=== PATIENT | female | born 1990 | race Caucasian/White ===

== ENCOUNTER 2023-05-21 12:23 | Outpatient (CLI) | payer OTHER, SELFPAY ==
--- NOTE | 2023-05-21 12:15 | CRLHL7_ITS ---
For Patients: As a result of the Cures Act, medical imaging exams and procedure reports are released immediately into your electronic medical record. You may view this report before your referring provider. If you have questions, please contact your health care provider. INDICATION: Dating and viability. LMP 03/07/2023. COMPARISON: None. TECHNIQUE: Real-time dinh-scale imaging of the pelvis was performed. FINDINGS: Sonographic imaging demonstrates a single living intrauterine gestation. The embryo has a regular cardiac rate measuring 163 beats per minute. The embryo`s crown-rump length measurement of 5.0 cm corresponds to a gestational age of 11 weeks 5 days with a sonographic due date of 12/05/2023. There is a normal-appearing yolk sac. The placenta has not yet developed. There is a 1.1 x 1.0 x 2.2 cm subchorionic hemorrhage in the right uterus. The right ovary measures 4.0 x 1.4 x 2.1 cm and the left ovary measures 4.7 x 3.5 x 3.5 cm. Corpus luteal cyst in the left ovary. No free fluid in the cul-de-sac. IMPRESSION: 1. Single living intrauterine gestation with crown rump length 5.0 cm which corresponds to a gestational age of 11 weeks 5 days with a sonographic due date of 12/05/2023. 2. The clinical gestational age by LMP is 10 weeks 5 days. 3. Small subchorionic hemorrhage. Dictated by Renea Sotomayor MD @ 05/21/2023 10:46:29 PM (Electronically Signed)
== END 2023-05-21 12:24 | disposition home or self-care (01) ==
LOC: US 12:24
PROVIDERS: Visit Provider Registered Nurse
DX: Z34.91 Encounter for supervision of normal pregnancy, unspecified, first trimester (principal); O09.521 Supervision of elderly multigravida, first trimester; Z3A.10 10 weeks gestation of pregnancy
CPT/HCPCS: 76801; 86703; 86706; 86803; 86850; 86900; 86901; 87086; 87340; 87491; 87591; T1013

== ENCOUNTER 2023-05-21 14:06 | Outpatient (CLI) | payer OTHER, SELFPAY ==
[2023-05-21 18:27] LABS: Chlamydia DNA Amplified* NOT DETECTED (No Detected); GC DNA Amplified* NOT DETECTED (No Detected)
== END 2023-05-21 14:07 | disposition home or self-care (01) ==
PROVIDERS: Visit Provider Advanced Practice Midwife
DX: Z34.91 Encounter for supervision of normal pregnancy, unspecified, first trimester (principal)
CPT/HCPCS: 86592; 86703; 86704; 86706; 86762; 86787; 86803; 86850; 86900; 86901; 87086; 87340; 87491; 87591

== ENCOUNTER 2023-07-09 14:55 | Outpatient (CLI) | payer OTHER, SELFPAY | END 2023-07-09 14:56 | disposition home or self-care (01) | LOC: NFLDREF 14:57 | PROVIDERS: Visit Provider Obstetrics & Gynecology | DX: Z34.92 Encounter for supervision of normal pregnancy, unspecified, second trimester (principal); Z3A.17 17 weeks gestation of pregnancy | CPT/HCPCS: 84439; 84443 ==

== ENCOUNTER 2023-08-08 14:57 | Outpatient (CLI) | payer OTHER, SELFPAY | END 2023-08-08 14:58 | disposition home or self-care (01) | LOC: NFLDREF 14:58 | PROVIDERS: Visit Provider Obstetrics & Gynecology | DX: Z34.92 Encounter for supervision of normal pregnancy, unspecified, second trimester (principal); Z3A.22 22 weeks gestation of pregnancy; R79.89 Other specified abnormal findings of blood chemistry | CPT/HCPCS: 84439; 84443 ==

== ENCOUNTER 2023-09-19 11:42 | Outpatient (CLI) | payer OTHER, SELFPAY | END 2023-09-19 11:43 | disposition home or self-care (01) | LOC: NFLDREF 11:43 | PROVIDERS: Visit Provider Obstetrics & Gynecology | DX: O99.013 Anemia complicating pregnancy, third trimester (principal); Z3A.28 28 weeks gestation of pregnancy; Z11.3 Encounter for screening for infections with a predominantly sexual mode of transmission | CPT/HCPCS: 82728; 86592 ==

== ENCOUNTER 2023-09-28 07:58 | Outpatient (RCR) | payer OTHER, SELFPAY ==
--- NOTE | 2023-09-20 14:40 | URNOTE ---
Received request for prior authorization for Iron Dextran (InFed) ([id number]). Prior Authorization is not required per [facility] Rep. Noah Apodaca (Ref#[id number]).
--- NOTE | 2023-09-20 14:44 | PC.NURSE ---
Diagnosis: Iron deficiency anemia in .
[2023-09-28 08:08] VITALS: BP 129/83; PULSE 92; RESP 16; TEMP 36.1; O2SAT 99
[2023-09-28] MEDS: IRON DEXTRAN COMPLEX 25 MG in 0.9 % SODIUM CHLORIDE 100 ml 100 ML 402 MG IVPB (09:02)
[2023-09-28] MEDS: IRON DEXTRAN COMPLEX 975 MG in 0.9 % SODIUM CHLORIDE 250 ml 250 ML 269.5 MG IVPB (10:23)
--- NOTE | 2023-09-28 12:43 | ONC.NURNOTE ---
Pt tolerated InFed infusion with no side effects. She reports she had 5 IM injections of Venofer with her previous ~5 years ago which she tolerated well. She also notes with her first she developed food alleriges to almonds, strawberries, tuna and cabbage. Her symptoms were redness/rash/itching of upper body, head and neck. She denies any respiratory, lips/tongue/throat involvement. She is tolerating these foods with this , however she has omitted tuna from her diet and has not rechallenged.
== END 2024-03-26 23:59 | disposition home or self-care (01) ==
LOC: CCIC 07:58
PROVIDERS: Visit Provider Clinical Nurse Specialist
DX: D50.9 Iron deficiency anemia, unspecified (principal)
CPT/HCPCS: 96365; 96376; T1013; J1750; J7050

== ENCOUNTER 2023-10-19 15:30 | Outpatient (CLI) | payer OTHER, SELFPAY | END 2023-10-19 15:31 | disposition home or self-care (01) | LOC: NFLDREF 10-22 06:08 | PROVIDERS: Visit Provider Obstetrics & Gynecology | DX: Z34.83 Encounter for supervision of other normal pregnancy, third trimester (principal); D64.9 Anemia, unspecified; N89.8 Other specified noninflammatory disorders of vagina | CPT/HCPCS: 82728 ==

== ENCOUNTER 2023-11-08 11:38 | Outpatient (CLI) | payer OTHER, SELFPAY ==
[2023-11-09 11:14] LABS: Strep B DNA Probe Negative (Negative)
[2023-11-09 11:23] LABS: Strep B Susceptibility Needed? No
== END 2023-11-08 11:39 | disposition home or self-care (01) ==
LOC: NFLDREF 11:39
PROVIDERS: Visit Provider Obstetrics & Gynecology
DX: Z34.93 Encounter for supervision of normal pregnancy, unspecified, third trimester (principal)
CPT/HCPCS: 87081; 87653

== ENCOUNTER 2023-11-15 05:16 | Inpatient (IN) | payer OTHER, SELFPAY ==
[2023-11-15] VITALS (29 sets, daily range): BP systolic 112–139; BP diastolic 70–88; PULSE 61–78; RESP 16–18; TEMP 36.3–36.8; O2SAT 95–100; BMI 31.0
[2023-11-15] MEDS: LACTATED RINGERS 1000 ML 1,000 ML 550 ML IV (06:01)
--- NOTE | 2023-11-15 07:15 | W.PM.LDBA ---
Subjective History of Present Illness Time Seen by Provider: 07:15 Date Seen: 11/15/23 Narrative: Patient is being admitted to Labor and Delivery for scheduled repeat section. She is a 33 year old at 36.1 weeks gestation. Her full history and physical was dictated by Dr. Da Silva on 11/01/23. Please see this for details. No interval changes and no additional questions. Specific Issues/Plans : Anoop Don Want pap PP. 1. AMA Genetic screening: [id number] ordered on 06/11: low risk, girl 2. Hx C/S. Desires repeat. MFM anatomy scan on 08/06/2023: Normal anatomy scan. Cervix appears long and closed. The lower uterine segment appears very thin with myometrial thickness less than 3 mm. Finding concerning for a uterine window in carries an increased risk for uterine rupture. Would not recommend TOLAC. She is supposed to get a repeat assessment of the lower uterine segment in 1 week from their exam date. If findings are stable can consider spacing until 3rd trimester. Delivery timing will depend on subsequent ultrasounds. MFM US on 08/17/2023: Lower uterine segment again appears attenuated in the anticipated area fiber hysterotomy and overall appears stable compared to prior ultrasound. Recommend delivery at 37 weeks due to the lower uterine segment. Follow-up with [facility] ultrasound in 4 weeks (already scheduled) for growth, anatomy and lower uterine segment assessment. MFM ultrasound on 09/18/2023: Denies myometrial thickness ranges from 1.1-1.4 mm with no evidence of a symptomatic scar separation or outpouching of uterine contents into the maternal bladder. Findings are stable. Has a follow-up ultrasound scheduled with [facility] in 3 weeks. MFM ultrasound on 10/12/23: EFW 89%tile (2102g), AC 81%tile. Lower uterine segment continues to appear very thin measuring 1.2 mm. There appears to be a thin layer of myometrium throughout without evidence of a uterine window. Repeat assessment 1 more time in 3-4 weeks. MFM ultrasound on 11/05/23: EFW: 2983 g, 91 percentile, abdominal circumference 96 percentile. Cephalic, anterior placenta, three-vessel umbilical cord, single deepest pocket of amniotic fluid 3.6 cm. On transvaginal ultrasound the lower uterine segment continues to appear very thin, measuring 0.8 mm today. There appears to be a very thin layer myometrium throughout without evidence of bladder bulge or interruption that would suggest a uterine window. She is planned for delivery next week at 36 weeks. Plan for delivery on 11/16/23 at 36w2d. BMZ series at 35 weeks: Fist on 11/08/23, GBS at 35 weeks: Collected 11/08/23 3. Hx frequent UTIs. 5. Hx PP depression. Therapy was helpful for her. 6. Hair loss TSH low at 0.180, free T4 nl at 1.07 on 07/09/23 Repeat TFT in 4 weeks: TSH 0.252 and Free T4 1.00 on 08/08/23 7. Anemia 09/19: 9.8, asymptomatic IV iron: 09/28/23 Repeat Hgb with reflex ferritin at 32 weeks [10.6] and 34 weeks [11.1] Covid: 05/21/23 Flu: 06/11/23 Tdap: 10/05/23 H&P: 11/01/[address] Da Silva contraception: Still deciding but partner's vasectomy? OB - Problem Based A/P Additional Plan (1) Previous delivery affecting : Status: Acute Plan - Patient having a repeat at 36.1 weeks due to thin lower uterine segment - s/p BMZ benefit, first dose on 11/08/23 - s/p IV iron infusion with great response. Her hgb is normal for 3rd trimester of at 11.1 - Will proceed with repeat delivery OB Exam Physical Exam Narrative: Physical exam: General: No acute distress Psych: Alert and oriented x3, full affect HEENT: Normocephalic, atraumatic Lungs: Unlabored breathing Neuro: No focal deficit. Mentating appropriately Pelvic exam: Deferred
[2023-11-15] MEDS: CEFAZOLIN 2 GM INJ IVP (08:40)
--- NOTE | 2023-11-15 10:04 | P.OBPRC_ITS ---
Procedure Time Seen by Provider: 08:00 Date of procedure: 11/15/23 Will [facility] bill your pro fee for this procedure?: Yes Procedure Description: DELIVERY BY SECTION Date of Service: 11/15/2023 Delivery time: 904 Summary: Admitted for scheduled delivery at 36.1 weeks, repeat lower uterine transverse delivery, Pfannenstiel, Closed with sutures, QBL 405 cc, No complications, Findings: 4x 4 cm uterine window low in the lower uterine segment, small 1 cm anterior subserosal fibroid. Otherwise, normal uterus, bilateral ovaries and tubes 8, 9 Weight 2940 g. Primary Indication: 1. Previous delivery, desires repeat 2. Lower uterine segment <3 mm since anatomy scan. Last measurement on 11/05/23 was 0.8 mm. Procedures: Repeat Lower uterine transverse section Specimens Removed: Placenta Surgeon: Margarita Da Silva MD Supply Chain Project Manager: ALEX Ortez Anesthesia: Spinal and TAP Report: Prophylactic antibiotic, 2 g of Ancef was given before patient was taken to OR. After arrival to the operating room patient was placed in the supine position with left lateral tilt after administration of spinal anesthesia. Laparotomy A pfannenstiel incision was made through the anterior abdominal wall with #10 scalpel approximately 2 cm above the pubic symphysis. The incision was extended sharply with the #10 scalpel through the subcutaneous tissue to the level of fascia. The fascia was entered sharply with a #10 scalpel (Pfannenstiel) in the midline and extended in semi-elliptical fashion with Cottrell scissor. The underlying muscles were dissected off the overlying fascia by grasping the superior aspect of fascia with two wendy clamps and blunt dissection was used along the midline. The fascia was further from rectus muscle with Cottrell scissor and/or cautery. In similar fashion, the lower aspect of fascia was also grasped with two Wendy clamps and both blunt and sharp dissection was used to separate fascia from rectus muscle. The rectus muscles were in the midline bluntly with digits. The peritoneum was then entered bluntly. The peritoneal incision was then extended superiorly and inferiorly under direct visualization with care being taken to avoid bladder and bowel. Minimal filmy adhesions were noted. The peritoneal incision was enlarged bluntly by lateral traction from the surgeon's and language assistant's hand. Shemar retractor was inserted into the abdomen. Delivery A bladder flap was developed by grasping with Gabonese forcep and enter with Metzenbaun scissor. Then sharp and blunt dissection with Metzenbaum scissor and fingers were performed, taking care not to enter the uterine window. A low transverse hysterotomy above the uterine window was made then with #10 scalpel and extended laterally and cephalad with fingers in a low transverse fashion wit h Manu Caputo technique with care being taken to avoid injury to the fetus. The amniotic cavity (membrane) was then entered with spontaneous rupture of membrane, and the amniotic fluid was noted to be clear, fetus was delivered cephalic. With delivery of the baby, no extension was noted. Placenta was delivered spontaneously with steady traction on cord and manual separation of placenta from uterine wall. Closure Uterine cavity was cleaned after placental delivery with lap sponge x 2. The hysterotomy was closed in two layers with stitches using 0 vicryl with continuous locking stitches and 0 Monocryl in a continuous non locking manner. Another running locking layer was placed in the middle of hysterotomy due to persistent bleeding. Three [id number] placed to reinforce the uterine win jose manuel as it was bleeding as well. Ruth applied Hemostasis was achieved as needed with electrocautery. The ovaries/tubes/uterine surface were evaluated. They were found to be normal. Shemar retractor removed and hemostasis was confirmed again. Fascia was closed with running stitches using 0 PDS. Subcutaneous layer was irrigated. Hemostasis was checked for and found to be adequate. The subcutaneous layer was closed with running 2-0 Vicryl sutures. The skin was closed with 3-0 monocryl subcuticular sutures . The incision was cleaned, Exofin applied, and Mepilex dressing placed and the procedure considered terminate at this time. Intraoperative Complications: None QBL: 405 cc Uterotonics/hemostatic agents: 40 u of pitocin, 1g of TXA , Ruth Disposition: The patient tolerated the procedure well. She was recovered in Obstetric PACU for close monitoring in stable condition, with a contracted uterus and normal transvaginal bleeding. The infant was sent to mother?s bedside. The placenta was sent to pathology for delivery. Debrief with OR team performed and specimen reviewed at the conclusion of the procedure. Infant total score - 1 minute: 8 total score - 5 minute: 9
--- NOTE | 2023-11-15 10:13 | W.PM.NB ---
Nerve Block Nerve Block Time Seen by Provider: 09:58 Date Seen: 09/22/23 Type of block requested by surgeon for post-operative analgesia: TAP Side: bilateral Time out performed: Yes Verification of patient name: Yes Verification of date of : Yes Site marking: site marked Name of person performing procedure: Jared Walsh Continuous monitoring Was continuous monitoring of O2 sat, B/P, monitor worker, recorded every 15 minutes?: Yes Procedure Checklist: sterile prep, needles and gloves Ultrasound guided. Images saved: Yes Medications given in 5ml increments after negative aspiration: Marcaine %: 0.25 mL: 30 Needle gauge: 20 and Exparel mL: 10 Needle gauge: 20 Patient tolerated procedure well: Yes Block Charges Block Charge (with Pro Fee): TAP Bilateral Use of Ultrasound Machine for Block: Yes- US Guidance/pain block
--- NOTE | 2023-11-15 10:15 | W.ANESCHARGE ---
Anesthesia Charges Start Date/Time Anesthesia Start Date: 11/15/23 Anesthesia Start Time: 08:33 Stop Date/Time Anesthesia Stop Date: 11/15/23 Anesthesia Stop Time: 10:09
--- NOTE | 2023-11-15 10:35 | W.ANESCHARGE ---
Anesthesia Charges Start Date/Time Anesthesia Start Date: 11/15/23 Anesthesia Start Time: 08:33 Stop Date/Time Anesthesia Stop Date: 11/15/23 Anesthesia Stop Time: 10:09
[2023-11-15 11:14] LABS: Basophils Absolute Auto 0.02 K/uL (0.00-0.30); Basophils Percent Auto 0.2 % (0.0-3.0); Eosinophils Absolute Auto 0.05 K/uL (0.00-0.50); Eosinophils Percent Auto 0.5 % (0.0-7.0); Hematocrit 36.7 % (33.0-51.0); Hemoglobin* 11.6 gm/dL (12.0-16.0); Immature Granulocytes Abs Auto 0.05 K/uL (0.00-0.30); Immature Granulocytes Pct Auto 0.5 %; Lymphocytes Percent Auto 11.7 % (20-44); Mean Corpuscular HGB Conc 32 gm/dL (32-36); Mean Corpuscular Hemoglobin 29 pg (26-34); Mean Corpuscular Volume 90 fL (80-100); Monocytes Percent Auto 3.3 % (0.0-11.0); Neutrophils Percent Auto 83.8 % (42.0-72.0); Platelet Count* 231 K/uL (140-440); RDW Coefficient of Variation % 16.9 % (11.5-15.5); Red Blood Count 4.07 m/uL (4.00-5.20); White Blood Count* 9.72 K/uL (4.50-11.00)
[2023-11-15 11:24] LABS: Slide Review Reflex No
[2023-11-15] MEDS: KETOROLAC 30 MG/ML inj IVP ×2 (15:25→22:11)
[2023-11-16] VITALS (13 sets, daily range): BP systolic 103–120; BP diastolic 63–82; PULSE 67–97; RESP 16–18; TEMP 36.5–36.9; O2SAT 95–97
[2023-11-16] MEDS: KETOROLAC 30 MG/ML inj IVP ×2 (04:27→10:47)
[2023-11-16 07:10] LABS: Hemoglobin* 10.3 gm/dL (12.0-16.0)
--- NOTE | 2023-11-16 08:12 | P.OBPN_ITS ---
OB - PN:Subj Subjective Date Seen: 11/16/23 Narrative: Alma is a 33 y.o. G 2 P 2 who was admitted to L & D for scheduled c/s for concerns for lower uterine segment window. ?She had a section that was uncomplicated. The patient feels well. ?The pain is well controlled with current medications. ?She has no new complaints. ?She is breast feeding and reports things are going well. the patient has done well.? Vitals have been stable.? She has remained afebrile.? Has a good appetite, is tolerating a general diet. ?She is voiding without difficulty.? She is passing gas and has not had a bowel movement.? She is ambulating and denies any dizziness.? Has small amount of rubra lochia. Single Pass Soil Stabilizer Operator present for entire visit. Problems: none OB - PN: Obj Exam Physical Exam: Vital signs: Temp Pulse Resp BP Pulse Ox O2 Del Method 98.5 F 67 18 103/63 95 Room Air 11/16/23 04:33 11/16/23 04:33 11/16/23 05:13 11/16/23 04:33 11/16/23 04:33 11/16/23 04:33 Narrative: GENERAL APPEARANCE:? normal affect, alert, no distress MOOD:? appropriate CHEST:? clear to auscultation HEART:? regular rate and rhythm ABDOMEN:? soft, non-tender the uterine fundus is at Umbilicus, Midline and is appropriate for the stage of recovery. LOCHIA: scant EXTREMITIES:? normal and no edema INCISION: Dressing in place; clean, dry, and intact Urinary Catheter Management: Urethral: Cath placed during this visit: yes, but has since been removed by the nurse Reason for continuing: decision to DC catheter Insertion date: 11/15/23 Insertion time: 08:40 Removal date: 11/15/23 Removal time: 17:00 OB - PN: Obj Data Labs Labs: Laboratory Results - last 24 hr 11/15/23 11/16/23 11:03 07:05 WBC 9.72 RBC 4.07 Hgb 11.6 L 10.3 L Hct 36.7 MCV 90 MCH 29 MCHC 32 RDW Coeff of Jumana 16.9 H Plt Count 231 Neut % (Auto) 83.8 H Lymph % (Auto) 11.7 L Hart % (Auto) 3.3 Eos % (Auto) 0.5 Baso % (Auto) 0.2 Neut # (Auto) 8.10 H Lymph # (Auto) 1.10 Hart # (Auto) 0.30 Eos # (Auto) 0.05 Baso # (Auto) 0.02 Abs Immat Gran (auto) 0.05 Imm/Tot Granulo (auto) 0.5 Blood Type O Positive Antibody Screen NEGATIVE OB - PN: A/P Delivery Assessment and Plan (1) Lactating mother: Status: Acute (2) care and examination immediately after delivery: Status: Acute Plan day: 1 Plan: routine care Comments: plan: Routine post-op care , may see if needed Hgb 10.3. Anticipate discharge tomorrow or the next day.
[2023-11-16] MEDS: DOCUSATE SODIUM 100 MG CAPSULE PO (08:30)
[2023-11-16] MEDS: IBUPROFEN 600 MG TABLET PO (16:26)
[2023-11-16] MEDS: ACETAMINOPHEN 500 MG TABLET 1000 MG PO (18:04)
[2023-11-17] MEDS: IBUPROFEN 600 MG TABLET PO ×2 (00:12→06:37)
[2023-11-17] MEDS: ACETAMINOPHEN 500 MG TABLET 1000 MG PO ×2 (00:12→06:38)
[2023-11-17 02:20] VITALS: BP 118/79; PULSE 65; RESP 22; TEMP 36.5
[2023-11-17 10:11] VITALS: BP 118/77; PULSE 72; RESP 22; TEMP 36.8; O2SAT 97
[2023-11-17] MEDS: DOCUSATE SODIUM 100 MG CAPSULE PO (10:15)
[2023-11-17 12:19] LABS: Rapid Plasma Reagin (RPR) Non Reactive (Non Reactive)
--- NOTE | 2023-11-17 12:37 | PM.OBDSVD1 ---
DS: Providers Provider Time Seen by Provider: 12:38 Date Seen: 11/17/23 Date of admission: 11/15/23 05:16 Primary care physician: Not a Local Provider Admitting Clinician: Margarita Da Silva MD Attending Physician on discharge: Margarita Da Silva MD Date of Discharge: 11/17/23 DS: Diagnosis Discharge Diagnosis (1) Lactating mother: Status: Acute (2) care and examination immediately after delivery: Status: Acute (3) Anemia: Status: Acute Problem details: had IV iron last , anemia a lot of her live also Exam Narrative: Exam Narrative: Physical exam: General: No acute distress Psych: Alert and oriented x4, full affect HEENT: Normocephalic, atraumatic Neck: No cervical adenopathy, no thyromegaly Heart: Regular rate and rhythm, no murmur rub or gallop Lungs: Clear to auscultation bilaterally Abdomen: Normoactive bowel sounds, soft, no tenderness, rebound, or guardin Incision: Appropriately tender to palpation. Clean, dry, and intact. No erythema, induration, or abnormal discharge/breakdown Skin: No lesions or rashes Lower extremities: No edema or erythema Pelvic exam: Scant bleeding on pad Const: Vital Signs, click to edit/add: Vital Signs - 24 hr 11/16/23 16:29 11/16/23 20:35 11/17/23 02:20 Temperature 97.7 F 97.7 F 97.7 F Pulse Rate [Blood Pressure Cuff] 82 65 Respiratory Rate 16 16 22 Blood Pressure [Le ft Arm] 120/82 114/76 118/79 Pulse Oximetry 97 Oxygen Delivery Me thod Room Air Room Air 11/17/23 10:11 Temperature 98.3 F Pulse Rate [Blood Pressure Cuff] 72 Respiratory Rate 22 Blood Pressure [Le ft Arm] 118/77 Pulse Oximetry 97 Oxygen Delivery Me thod Room Air OB - DS: Summary Hospital Course Hospital Course: The patient is a 33 year old G 2 P 0101 at 36.1 weeks gestation that was admitted to the Center on 11/15/23 for schedule repeat delivery due to thin lower segment. She had an uncomplicated delivery. She delivered a viable female infant. She is breast feeding. the patient has done well. Overnight patient had no complaints. Her pain is well controlled on oral pain medications. She is tolerating a regular diet. She has passed flatus. She is ambulating without difficulty. Lochia is scant. She is urinating without morales. Patient denies chest pain, SOB, n/v, headache, RUQ pain, vision changes, dizziness. surgical coordinator Kaye was with me. Peripartum Data Procedures: Procedures Operation Date: 11/15/23 07:15 Actual Procedure Side Surgeon p Repeat Section Margarita Da Silva MD Infant Gender: Female Time Spent with Patient Time attestation: Total time spent providing and/or coordinating discharge services: Discharge Plan Discharge Disposition: Home, Self-Care Date of Admission: 11/15/23 05:16 Attending Provider on Discharge: Margarita Da Silva Primary Care Provider: Provider,Not a Local Condition: Stable Anticipated Discharge Date/Time: 11/17/23 09:23 Discharge Medications: New acetaminophen 500 mg Tablet 1,000 mg PO Q6H PRN (Reason: Pain) Qty: 60 0RF docusate sodium 100 mg Capsule 100 mg PO DAILY 30 Days Qty: 30 0RF ibuprofen 600 mg Tablet 600 mg PO Q6H PRN (Reason: Pain) 30 Days Qty: 30 0RF oxycodone 5 mg Tablet 5 mg PO Q6H PRN (Reason: Pain) 14 Days Qty: 20 0RF simethicone 80 mg Tablet,Chewable 80 - 160 mg PO Q4H PRN (Reason: Gas) 30 Days Qty: 60 0RF Continued Classic 28 mg iron- 800 mcg tablet PO QDAY Discharge Orders: Discharge Order (Routine); Ordered 11/17/23 Ordered By: Margarita Da Silva Patient Education: (DC), OB /Breast Feeding Activity Level: Activity as Tolerated Discharge Diet: Regular Follow Up Appointments: Provider,Not a Local [Primary Care Provider] - Forms: [employer] Info Instructions
--- NOTE | 2023-11-29 06:55 | W.PM.NB ---
Nerve Block Nerve Block Time Seen by Provider: 09:58 Date Seen: 11/15/23 Type of block requested by surgeon for post-operative analgesia: TAP Side: bilateral Time out performed: Yes Verification of patient name: Yes Verification of date of : Yes Site marking: site marked Name of person performing procedure: Otis Berman Continuous monitoring Was continuous monitoring of O2 sat, B/P, superintendent circus, recorded every 15 minutes?: Yes Procedure Checklist: sterile prep, needles and gloves Ultrasound guided. Images saved: Yes Medications given in 5ml increments after negative aspiration: Marcaine %: 0.25 mL: 30 Needle gauge: 20 and Exparel mL: 10 Needle gauge: 20 Patient tolerated procedure well: Yes Additional comments: Injected in 5ml increments after negative aspiration Block Charges Block Charge (with Pro Fee): TAP Bilateral Use of Ultrasound Machine for Block: Yes- US Guidance/pain block
== END 2023-11-17 11:35 | disposition home or self-care (01) | DRG 788 ==
PROVIDERS: Admitting Provider Obstetrics & Gynecology; Visit Provider Obstetrics & Gynecology
PROC: 10D00Z1 Extraction of Products of Conception, Low, Open Approach (ICD-10-PCS; CPT 59514; principal; 2023-11-15 07:15)
DX: O34.211 Maternal care for low transverse scar from previous cesarean delivery (principal); O99.02 Anemia complicating childbirth; D64.9 Anemia, unspecified; Z3A.36 36 weeks gestation of pregnancy; Z37.0 Single live birth; G89.18 Other acute postprocedural pain
CPT/HCPCS: 01961; 36415; 64488; 76942; 85018; 85025; 86592; 86850; 86900; 86901; 88307; T1013; A9270; C9290; J0665; J0690; J1885; J2250; J2274; J2371; J2405; J2590; J3010; J3490; J7120

== ENCOUNTER 2023-11-18 21:02 | Emergency (ER) | payer OTHER, SELFPAY ==
[2023-11-18] VITALS (13 sets, daily range): BP systolic 123–141; BP diastolic 80–81; PULSE 57–70; RESP 18; TEMP 36.9; O2SAT 97–99; BMI 30.4
--- NOTE | 2023-11-18 21:19 | ED_ITS ---
HPI - General Adult General Chief complaint: Post OB/Post- Complication Stated complaint: chest and back pain Time Seen by Provider: 11/18/23 21:12 History of Present Illness HPI narrative: Pt had a baby two days ago by . Pt denies complications with or , . Pt now c/o intermittent left leg pressure that started this morning but it progressed to chest pain that radiates to mid back this evening. Pt also c/o SOB. Pt states her BP at home was 142/92 33-year-old woman presenting to the emergency department with concern of elevated blood pressure. Did have a 2 days ago. Apparently no complications. Now . Had some leg pressure beginning this morning and then a sensation of some chest pressure mid chest. Blood pressures also measured at 140 2/92. Clarification of chest pain is less a pain and or of a slight sense of shortness of air. No fever or cough. Significant other/partner/ with permission offers more information and Alma confesses that has been in rather ?L humor? angry crying for a good portion of the day. Infant also is not latching very well. Related Data Home Medications Medication Instructions Recorded Confirmed vits no.[id number]-ferrous fum tab PO QDAY 05/21/23 11/08/23 28 mg iron-folic acid 800 mcg tablet (Classic ) Previous Rx's Medication Instructions Recorded acetaminophen 500 mg tablet 1,000 mg (2 x 500 mg) PO Q6H PRN 11/17/23 Pain #60 tabs ibuprofen 600 mg tablet 600 mg PO Q6H PRN Pain 30 days #30 11/17/23 tabs Allergies Allergy/AdvReac Type Severity Reaction Status Date / Time fish derived Allergy Intermediate Verified 11/18/23 21:15 shellfish derived Allergy Intermediate Verified 11/18/23 21:15 Review of Systems Status of ROS: Reports: 6 or more systems reviewed and unremarkable except as noted in History and below PFSH PFS Medical History depression ?F53.0 - depression (ICD-10) Frequent UTI ?N39.0 - Urinary tract infection, site not specified (ICD-10) Anemia ?D64.9 - Anemia, unspecified (ICD-10) Surgical History Previous section ?Z98.891 - History of uterine scar from previous surgery (ICD-10) History of appendectomy ?Z90.49 - Acquired absence of other specified parts of digestive tract (ICD- 10) Family History Mother Diabetes High blood pressure Father High blood pressure Sister Diabetes Brother Tachycardia Sister Depression Paternal Grandmother High blood pressure Stroke Paternal Grandfather Diabetes Maternal Grandmother Lung cancer Social History Narrative: SOCIAL Education: Bachelors - [employer] Work: stay at home Partner: Darrin Don - , automotive general sales manager at [employer] Lives with: and son Pets: none Abuse: Denies past/present Special Diet: no seafood Ok with a blood transfusion: yes Culture or baptism beliefs: denies RISK FACTORS Exercise Times/wk: not at this time-encouraged Depression/Anxiety: PP depression - had therapy and that was helpful PEPE: 4 PHQ 9: 6 Seat Belt Use: Routinely Smoking: Denies past/present Alcohol/day: Denies while Caffeine: 1-2 cup per day Drug Use: Denies past/present Chicken Pox: Yes as a child MRSA: Denies What is your current living situation?: I presently have a place to live Problems where you live: no known problems In the past 12 months, utilities in danger of being shut off: no In past 12 months, lack of transportation kept you from medical appts, meetings, work, or getting things needed for daily living: no In the past 12 mos, have been you worried that your food would run out before you had money to buy more?: never true In the past 12 mos, the food you bought just didn't last and you didn't have money to buy more?: never true Smoking Status: Never smoker Do you use any of these nicotine containing products: None Second hand tobacco smoke exposure: No How often do you have a drink containing alcohol: never AUDIT-C Alcohol total score: 0 Non-prescribed substance use: denies use How often does anyone, including family, friends and others, physically hurt you : unable to answer How often does anyone, including family, friends and others, insult or talk down to you: unable to answer How often does anyone, including family, friends and others, threaten you with harm: unable to answer How often does anyone, including family, friends and others, scream or curse at you: unable to answer Little interest or pleasure in doing things: not at all Feeling down, depressed, or hopeless: not at all Exam Narrative: Exam Narrative: Pleasant. Appears a little tired. Maybe mildly anxious. Skin is warm and dry. Discomfort is not reproducible palpation over the chest wall. Legs negative Homans. Trace bilateral nonpitting lower extremity edema. Lungs are clear. Abdomen is soft without peritoneal signs. Not unexpectedly tender however though considering through the low abdomen. No indication of inflammation/infection at the surgical wound. A little sore to palpation in the periscapular musculature. Heart in regular rate and rhythm without murmur. One beat clonus. 1+ patellar and brachioradialis DTRs. Cranial nerves 2-12 intact. Const: Vital Signs, click to edit/add: Vital Signs - 24 hr 11/18/23 21:06 11/18/23 21:42 11/18/23 21:43 Temperature 98.4 F Pulse Rate 70 68 Pulse Rate [Pulse Oximeter] 62 Respiratory Rate 18 18 Blood Pressure 133/81 Blood Pressure [Ri ght Upper Arm] 141/81 H Pulse Oximetry 98 98 98 Oxygen Delivery Me thod Room Air Room Air 11/18/23 21:57 11/18/23 22:00 11/18/23 22:01 Temperature Pulse Rate 63 66 63 Pulse Rate [Pulse Oximeter] Respiratory Rate 18 Blood Pressure 132/81 Blood Pressure [Ri ght Upper Arm] Pulse Oximetry 98 97 97 Oxygen Delivery Tn thod Room Air 11/18/23 22:15 11/18/23 22:30 11/18/23 22:31 Temperature Pulse Rate 63 62 60 Pulse Rate [Pulse Oximeter] Respiratory Rate 18 Blood Pressure 123/80 Blood Pressure [Ri ght Upper Arm] Pulse Oximetry 97 98 98 Oxygen Delivery Tn thod Room Air 11/18/23 22:32 11/18/23 22:45 11/18/23 23:00 Temperature Pulse Rate 57 L 60 58 L Pulse Rate [Pulse Oximeter] Respiratory Rate 18 Blood Pressure Blood Pressure [Ri ght Upper Arm] Pulse Oximetry 99 98 98 Oxygen Delivery Tn thod Room Air 11/18/23 23:02 Temperature Pulse Rate 64 Pulse Rate [Pulse Oximeter] Respiratory Rate Blood Pressure 133/80 Blood Pressure [Ri ght Upper Arm] Pulse Oximetry 99 Oxygen Delivery Me thod Documenting provider has reviewed patient's vital signs: yes Course Vital Signs Vital signs: Initial Vital Signs Temperature 98.4 F 11/18/23 21:06 Temperature Source Temporal Artery Scan 11/18/23 21:06 Pulse Rate 62 11/18/23 21:06 Respiratory Rate 18 11/18/23 21:06 Blood Pressure 141/81 H 11/18/23 21:06 Blood Pressure Mean 101 11/18/23 21:06 Blood Pressure Position Sitting 11/18/23 21:06 Pulse Oximetry 98 11/18/23 21:06 Oxygen Delivery Method Room Air 11/18/23 21:06 Vital Signs Temperature 98.4 F 11/18/23 21:06 Pulse Rate 62 11/18/23 21:06 Respiratory Rate 18 11/18/23 21:06 Blood Pressure 141/81 H 11/18/23 21:06 Pulse Oximetry 98 11/18/23 21:06 Oxygen Delivery Method Room Air 11/18/23 21:06 Temperature 98.4 F 11/18/23 21:06 Pulse Rate 64 11/18/23 23:02 Respiratory Rate 18 11/18/23 22:32 Blood Pressure 133/80 11/18/23 23:02 Pulse Oximetry 99 11/18/23 23:02 Oxygen Delivery Method Room Air 11/18/23 22:32 Medications Administered Medications: Discontinued Medications Generic Name Dose Route Start Last Admin Trade Name Freq PRN Reason Stop Dose Admin Sodium Chloride 1,000 mls @ 1,000 mls/hr 11/18/23 22:23 11/18/23 23:17 0.9 % Sodium Chloride 1000 Ml IV 11/18/23 23:22 Infused .Q1H ONE Infusion Medical Decision Making MDM Narrative Medical decision making narrative: Generally appears well here. Blood pressure is a little elevated on arrival. And does report similar slightly higher blood pressures. I do not see significant evidence for DVT or PE/amniotic fluid embolus. Would monitor for improvement in this blood pressure and check labs for any evidence of preeclampsia. Does sound as though this may have been somewhat emotional. Is struggling with infant latch and freshly . Acknowledges that was rather emotional today. We did discuss that stress can certainly elevated blood pressure to some degree at least. Labs are overall reassuring. Urinalysis with hematuria not unexpected. Blood pressure improves over time. She did think she would benefit from fluids. Is given IV fluids. I think this would be helpful particularly as she is trying to breastfeed. See patient discharge plan further discussion Lab Data Lab results reviewed: Yes I reviewed the patient's lab results Labs: Lab Results 11/18/23 11/18/23 11/18/23 Range/Units 21:45 21:50 21:55 WBC 8.55 (4.50-11.00) K/uL RBC 4.04 (4.00-5.20) m/uL Hgb 11.5 L (12.0-16.0) gm/dL Hct 36.5 (33.0-51.0) % MCV 90 (80-100) fL MCH 29 (26-34) pg MCHC 32 (32-36) gm/dL RDW Coeff of Jumana 16.8 H (11.5-15.5) % Plt Count 266 (140-440) K/uL Neut % (Auto) 67.2 (42.0-72.0) % Lymph % (Auto) 24.2 (20-44) % Island % (Auto) 5.1 (0.0-11.0) % Eos % (Auto) 2.9 (0.0-7.0) % Baso % (Auto) 0.2 (0.0-3.0) % Neut # (Auto) 5.74 (1.7-7.0) K/uL Lymph # (Auto) 2.07 (0.90-2.90) K/uL Island # (Auto) 0.40 (0.00-0.90) K/UL Eos # (Auto) 0.25 (0.00-0.50) K/uL Baso # (Auto) 0.02 (0.00-0.30) K/uL Abs Immat Gran (auto) 0.03 (0.00-0.30) K/uL Imm/Tot Granulo (auto) 0.4 % Fibrinogen 601 H (200-450) mg/dL Sodium 138 (135-149) mmol/L Potassium 3.8 (3.6-5.1) mmol/L Chloride 111 (96-114) mmol/L Carbon Dioxide 24 (20-32) mmol/L Anion Gap 3 L (7-15) mEq/L BUN 18 (5-24) mg/dL Creatinine 0.5 (0.5-1.5) mg/dL Estimated Creat Clear 147.01 Estimated GFR 125 ml/min Glucose 91 (60-115) mg/dL Uric Acid 3.7 (2.2-8.4) mg/dL Calcium 9.3 (8.4-10.6) mg/dL Total Bilirubin 0.2 (0.1-1.5) mg/dL Direct Bilirubin 0.0 (0.0-0.5) mg/dL AST 22 (12-35) U/L ALT 20 (4-35) U/L Alkaline Phosphatase 99 (40-150) U/L Lactate Dehydrogenase 187 (120-246) U/L Total Protein 6.9 (6.0-8.3) g/dL Albumin 3.6 (3.3-5.0) g/dL Urine Color Yellow (Yellow) Urine Appearance Clear (Clear) Urine pH 5.5 (5.0-8.5) Ur Specific [place] <= 1.005 (1.000-1.030) Urine Protein Negative (Negative) Urine Glucose (UA) Negative (Negative) Urine Ketones Negative (Negative) Urine Blood 3+ A (Negative) Urine Nitrite Negative (Negative) Urine Bilirubin Negative (Negative) Urine Urobilinogen 0.2 (0.2-1.0) Ur Leukocyte Esterase Negative (Negative) Urine RBC >100 A (0-2) Urine WBC 0-2 (0-5) Ur Squamous Epith Cells Few (None-Few) Urine Bacteria None (None) POC Troponin I 0.01 (0.01-0.04) ng/ml ECG Data Attestation: I personally reviewed and interpreted this ECG as follows: (Bradycardia in sinus rhythm. Rate of 58. Right bundle. No prior for comparison) Discharge Plan Discharge Clinical Impression: Elevated blood pressure, situational, Mild shortness of breath Patient Disposition: Home w/ Parent or Adult Condition: Improved Additional Instructions: It is a change and new stress. Even though everything may have gone well with prior new children, that does not mean that everything will be as easy this time. Please keep talking about your feelings. Can check blood pressure readings once or twice daily after period of rest. Report pressures greater than 140/180 repeatedly, significant headache, visual changes, increasing and persistent shortness of breath, escalating chest pain. Otherwise follow-up as scheduled in clinic. As your pain begins to be little less, please get outside and at least do some walking. Was a beautiful day today. Es un cambio y un nuevo estr?s. A pesar de que todo puede tobi bri flor con los nuevos hijos anteriores, eso no significa que todo ser? husain f?cil esta vez. Por favor, sigan hablando de monique sentimientos. Puede revisar las lecturas de la presi?n arterial saeid o dos veces al d?a despu?s de un per?odo de descanso. Reporte presiones superiores a 140/180 repetidamente, dolor de renee significativo, cambios visuales, dificultad para respirar creciente y persistente, dolor tor?cico en aumento. De lo contrario, realice el seguimiento seg?n lo programado en la cl?trista. A medida que jose dolor comienza a ser un poco dedrick, salga y al menos camine un poco. Hoy garcia sido un d?a precioso. Prescriptions: No Action Classic 28 mg iron- 800 mcg tablet PO QDAY acetaminophen 500 mg Tablet 1,000 mg PO Q6H PRN (Reason: Pain) Qty: 60 0RF ibuprofen 600 mg Tablet 600 mg PO Q6H PRN (Reason: Pain) 30 Days Qty: 30 0RF Follow Up/Referrals: Provider,Not a Local [Primary Care Provider] - Stand Alone Forms: MyHealth Info Instructions
[2023-11-18 22:00] LABS: Appearance Urine Clear (Clear); Bilirubin Urine Negative (Negative); Blood Urine 3+ (Negative); Color Urine Yellow (Yellow); Glucose Urine Negative (Negative); Ketones Urine Negative (Negative); Leukocyte Esterase Urine Negative (Negative); Nitrite Urine Negative (Negative); Protein Urine Negative (Negative); Specific Gravity Urine <= 1.005 (1.000-1.030); Urobilinogen Urine 0.2 (0.2-1.0); pH Urine 5.5 (5.0-8.5)
[2023-11-18 22:06] LABS: Basophils Absolute Auto 0.02 K/uL (0.00-0.30); Basophils Percent Auto 0.2 % (0.0-3.0); Eosinophils Absolute Auto 0.25 K/uL (0.00-0.50); Eosinophils Percent Auto 2.9 % (0.0-7.0); Hematocrit 36.5 % (33.0-51.0); Hemoglobin* 11.5 gm/dL (12.0-16.0); Immature Granulocytes Abs Auto 0.03 K/uL (0.00-0.30); Immature Granulocytes Pct Auto 0.4 %; Lymphocytes Absolute Auto 2.07 K/uL (0.90-2.90); Lymphocytes Percent Auto 24.2 % (20-44); Mean Corpuscular HGB Conc 32 gm/dL (32-36); Mean Corpuscular Hemoglobin 29 pg (26-34); Mean Corpuscular Volume 90 fL (80-100); Monocytes Percent Auto 5.1 % (0.0-11.0); Neutrophils Absolute Auto 5.74 K/uL (1.7-7.0); Neutrophils Percent Auto 67.2 % (42.0-72.0); Platelet Count* 266 K/uL (140-440); RDW Coefficient of Variation % 16.8 % (11.5-15.5); Red Blood Count 4.04 m/uL (4.00-5.20); White Blood Count* 8.55 K/uL (4.50-11.00)
[2023-11-18 22:10] LABS: Slide Review Reflex No
[2023-11-18 22:17] LABS: Troponin, Point-of-Care* 0.01 ng/ml (0.01-0.04)
[2023-11-18 22:19] LABS: Albumin* 3.6 g/dL (3.3-5.0); Chloride* 111 mmol/L (96-114)
[2023-11-18 22:20] LABS: Potassium* 3.8 mmol/L (3.6-5.1); Sodium* 138 mmol/L (135-149)
[2023-11-18 22:21] LABS: Bilirubin Total* 0.2 mg/dL (0.1-1.5); Total Protein* 6.9 g/dL (6.0-8.3)
[2023-11-18 22:22] LABS: Alanine Aminotransferase* 20 U/L (4-35); Alkaline Phosphatase* 99 U/L (40-150); Aspartate Amino Transferase* 22 U/L (12-35); Creatinine* 0.5 mg/dL (0.5-1.5); Est. Creatinine Clearance* 147.01; Estimated Glomerular Filt Rate 125 ml/min; Lactate Dehydrogenase* 187 U/L (120-246); Uric Acid* 3.7 mg/dL (2.2-8.4)
[2023-11-18 22:23] LABS: Anion Gap 3 mEq/L (7-15); Blood Urea Nitrogen* 18 mg/dL (5-24); Calcium* 9.3 mg/dL (8.4-10.6); Carbon Dioxide* 24 mmol/L (20-32); Glucose* 91 mg/dL (60-115)
[2023-11-18 22:28] LABS: RBC Urine >100 (0-2); Squamous Epithelial Cell Urine Few (None-Few); WBC Urine 0-2 (0-5)
[2023-11-18] MEDS: 0.9 % SODIUM CHLORIDE 1000 ml 1,000 ML IV (22:48)
[2023-11-18 23:05] LABS: Fibrinogen* 601 mg/dL (200-450)
== END 2023-11-18 23:17 | disposition home or self-care (01) ==
PROVIDERS: Emergency Provider Family Medicine
DX: R06.02 Shortness of breath (principal); R03.0 Elevated blood-pressure reading, without diagnosis of hypertension
CPT/HCPCS: 36415; 80048; 80076; 81001; 83615; 84484; 84550; 85025; 85384; 93005; 99283; 99284; J7030